=== PATIENT | female | born 2000 | race Caucasian/White ===

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

== ENCOUNTER 2023-05-02 17:15 | Outpatient (CLI) | payer OTHER, SELFPAY ==
[2023-05-02 17:33] VITALS: BP 123/68; PULSE 113
[2023-05-02 17:35] VITALS: PULSE 106; O2SAT 98
[2023-05-02 17:45] VITALS: TEMP 36.8
[2023-05-02 17:46] VITALS: PULSE 99; O2SAT 99
[2023-05-02 17:53] VITALS: BMI 37.4
[2023-05-02 18:22] LABS: ROM Internal Control Test YES-OK TO RESULT pt. (Internal QC); ROM Patient Test Negative (Negative); Record Kit Lot#, ROM+ K1374
--- NOTE | 2023-05-02 18:33 | OB.TRI.NOTE ---
HPI - General HPI Narrative EMPERATRIZ JOHNS, is a 23 F at 35.6 weeks gestation who presents with leaking fluid. Denies any contractions and reports positive movement. Maternal Data Information KAMILA Calculator Estimated Delivery Date Method Current WG Current Estimate 05/31/23 Manual 35w 6d PFSH PFSH Home Medications aspirin 81 mg tablet,delayed release (Jaspreet Low Dose Aspirin) 162 mg PO DAILY 05/02/23 [History Last Taken 04/30/23 22:00 162 mg] fluoxetine 20 mg capsule (Prozac) 20 mg PO DAILY 05/02/23 [History Last Taken 05/01/23 22:00 20 mg] fluticasone propionate 50 mcg/actuation nasal spray,suspension 2 spray intranasal DAILY PRN allergy symptoms 05/02/23 [History Last Taken 05/01/23 22:00 2 spray] vit no.95-ferrous fumarate 28 mg-folic acid 800 mcg tablet () 1 tab PO DAILY 05/02/23 [History Last Taken 05/01/23 22:00 1 TAB] Allergy/AdvReac Type Severity Reaction Status Date / Time amoxicillin [From Augmentin] Allergy Mild Rash Verified 05/02/23 17:49 clavulanic acid Allergy Mild Rash Verified 05/02/23 17:49 [From Augmentin] Seasonal Allergies: Uncoded Allergy Mild Other Verified 05/02/23 17:49 Social History Smoking Status: Never smoker ROS Eyes Eyes: Denies blurry vision Cardiovascular Cardiovascular: Reports none; Denies chest pain at rest, chest pain with activity or dizziness Respiratory/Chest Respiratory/Chest: Denies cough or dyspnea Gastrointestinal Gastrointestinal: Reports none and other; Denies diarrhea or vomiting Genitourinary Genitourinary: Denies dysuria Musculoskeletal Musculoskeletal: Reports none Integumentary Integumentary: Reports none; Denies rash Neurologic Neurologic: Denies dizziness, headache(s) or other visual disturbances Psychiatric Psychiatric: Reports none Physical Exam Const alert and no apparent distress General Appearance: cooperative Orientation / Consciousness: awake Exam Limitations: no limitations HEENT normocephalic Eyes General Eye: normal appearance of both eyes Neck full ROM Chest inspection of chest normal Resp normal respiratory effort and normal air movement Effort and Inspection: symmetric chest movement Auscultation: clear to auscultation bilaterally Cardio regular rate GI soft to palpation, non-tender and non-distended Inspection: and other Back/Spine normal ROM Extremity full ROM, normal capillary refill and no calf tenderness Skin no rashes or lesions noted Neuro oriented x3 and CN's II-XII intact bilaterally Psych mental status grossly normal NST FHR Rate Baby A Baseline: 145 Variability:: Moderate Accelerations:: 15 x 15 Decelerations:: None NST Reactive:: Yes FHR Category:: Category I Uterine Activity:: Irritability Assessment & Plan (1) 35 weeks gestation of : (2) No leakage of amniotic fluid into vagina: (3) History of prior with IUGR : (4) History of pre-eclampsia: PLAN: Plan NST reactive ROM plus negative PTL precautions reviewed D/C home with follow up in office
== END 2023-05-02 18:40 | disposition home or self-care (01) ==
LOC: WPOUT 17:30 → WP 17:31
PROVIDERS: PCP Nurse Practitioner Family; Referring Provider Advanced Practice Midwife; Visit Provider Advanced Practice Midwife
DX: Z03.79 Encounter for other suspected maternal and fetal conditions ruled out (principal); Z3A.35 35 weeks gestation of pregnancy; Z79.82 Long term (current) use of aspirin
CPT/HCPCS: 59025; 59050; 84112; 99221; G0378

== ENCOUNTER 2023-05-07 08:35 | Inpatient (IN) | payer OTHER, SELFPAY ==
[2023-05-07] VITALS (33 sets, daily range): BP systolic 107–145; BP diastolic 55–83; PULSE 79–111; RESP 16–17; TEMP 36.4–36.8; O2SAT 88–100; BMI 37.3
[2023-05-07] MEDS: LACTATED RINGERS 500 ML 999 ML IV (08:45)
[2023-05-07] MEDS: Oxytocin 10 UNITS/ML Vial IM (09:19)
[2023-05-07] MEDS: Oxytocin 15 Units/NS 250ml 15 UNITS/250 ML IV.SOLN 83 UNITS IV (09:19)
[2023-05-07 09:27] LABS: Absolute Neutrophil Count 11.2 X10^3/uL (2.0-7.7); Basophil# 0.08 X10^3/uL; Basophil% 0.5 % (0-1); Eosinophils% 0.7 % (0-5); Hemoglobin 12.9 g/dL (12.0-15.0); Lymphocyte % 15.8 % (19-41); Mean Corp Hgb Conc 33.1 g/dL (32-36); Mean Corpuscular Hgb 32.1 pg (27.0-32.0); Mean Platelet Vol. 10.1 fl (6.2-12.0); Monocyte# 1.14 X10^3/uL; Monocyte% 7.5 % (0-10); NRBC Flagged by Analyzer 0 % (0-5); Neutrophil # 11.18 X10^3/uL (2.7-7.7); Neutrophil % 73.8 % (47-70); Platelet Count 216 K/mm3 (150-450); RBC Distribution Width CV 12.8 % (11.6-14.6); RBC Distribution Width SD 44.8 fl (35.1-43.9); Red Blood Count 4.02 M/mm3 (4.2-5.4); White Blood Count 15.2 K/mm3 (4.4-11.0)
--- NOTE | 2023-05-07 09:29 | PCM.HP.OB ---
HPI - General General Date of Admission: 05/07/23 HPI Narrative EMPERATRIZ JOHNS, is a 23 F @ 36.4 weeks who presents c/o ctx - found to be 5cm on admission- quickly progressed to 9cm. Maternal Data Information KAMILA Calculator Estimated Delivery Date Method Current WG Current Estimate 05/31/23 Manual 36w 4d PFSH PFSH Home Medications aspirin 81 mg tablet,delayed release (Jaspreet Low Dose Aspirin) 162 mg PO DAILY 05/02/23 [History Last Taken 04/30/23 22:00 162 mg] fluoxetine 20 mg capsule (Prozac) 20 mg PO DAILY 05/02/23 [History Last Taken 05/01/23 22:00 20 mg] fluticasone propionate 50 mcg/actuation nasal spray,suspension 2 spray intranasal DAILY PRN allergy symptoms 05/02/23 [History Last Taken 05/01/23 22:00 2 spray] vit no.95-ferrous fumarate 28 mg-folic acid 800 mcg tablet () 1 tab PO DAILY 05/02/23 [History Last Taken 05/01/23 22:00 1 TAB] Allergy/AdvReac Type Severity Reaction Status Date / Time amoxicillin [From Augmentin] Allergy Mild Rash Verified 05/02/23 17:49 clavulanic acid Allergy Mild Rash Verified 05/02/23 17:49 [From Augmentin] Seasonal Allergies: Uncoded Allergy Mild Other Verified 05/02/23 17:49 Social History Smoking Status: Never smoker Vital Signs Vital Signs Vital Signs: 05/07/23 08:23 05/07/23 08:23 05/07/23 08:30 Pulse Rate 111 H 91 Blood Pressure 125/83 H BP Systolic 125 BP Diastolic 83 Pulse Ox 05/07/23 08:30 05/07/23 08:35 05/07/23 08:35 Pulse Rate 89 Blood Pressure BP Systolic BP Diastolic Pulse Ox 98 99 Physical Exam Const alert and oriented x3 General Appearance: cooperative HEENT normocephalic GI GI Narrative: Gravid, non tender to palpation. OB / External & Speculum: external exam normal Extremity normal to inspection Skin no rashes or lesions noted Neuro oriented x3 and CN's II-XII intact bilaterally Psych Appearance: grossly normal Labs Labs Labs: Blood Type Pending Antibody Screen Pending Hct 39.0 % (37-47) Hgb 12.9 g/dL (12.0-15.0) Syphilis Total Ab Pending Group B Strep DNA Pending Assessment & Plan (1) History of pre-eclampsia: (2) History of prior with IUGR : (3) 36 weeks gestation of : (4) labor in third trimester with delivery: PLAN: Plan Admit to L&D [facility] FHR/TOCO Monitor VS Anticipate rapid gbs was collected- pcn was ordered but patient progressed quickly- unable to start.
--- NOTE | 2023-05-07 09:31 | EX.PCM.OBRPT ---
Maternal Data Information KAMILA Calculator Estimated Delivery Date Method Current Current Estimate 05/31/23 Manual 36w 4d Vaginal Delivery Maternal Presentation Maternal Presentation: Active Labor Operative Information Date of Procedure: 05/07/23 Pre-Operative Diagnosis: labor, 36 weeks gestation Post-Operative Diagnosis: same, live male infant Surgery / Procedure Performed: Spontaneous Vaginal Delivery Type of Anesthesia: None Estimated Blood Loss: 100 Time of Delivery: 09:15 Findings Description of Procedure: Patient progressed to fully dilated with bulging membranes. Upon my arrival AROM performed clear fluid. At this time good maternal pushing efforts delivered the 's head followed by the rest the 's body. There was a body cord and a nuchal cord x 1 this was reduced after delivery as the infant delivered quickly. The infant was placed on the maternal chest the cord was clamped and cut after approximately 30 seconds of delayed clamping- was pink but not vigorous and the infant was taken to the warmer for evaluation with the entry level account executive called for assistance. IM and IV Pitocin were started per protocol. The placenta was delivered intact without complication. Vaginal and perineal tissue were evaluated no lacerations appreciated. Good hemostasis noted. Fundus was firm. Presentation: Vertex Amniotic Membrane Rupture Type: Artificial Amniotic Fluid Description: Clear Placental Delivery Description: Spontaneous Placenta Disposition: [facility] Specimen(s) Removed: Placenta Cord Vessel Description: 3 Vessels Cord Entanglement: - (Around the body and neck x1 tight) Nuchal Cord Compression: Without compression Infant A Gender: Male (1 minute): 7 (5 minute): 8 Delayed Cord Clamping: Yes Post Vaginal Delivery Medications Given After Delivery: IV Pitocin and IM Pitocin Episiotomy Description: None Laceration: None Complication Complications: None
[2023-05-07 09:50] LABS: Syphilis Antibodies Non-reactive
[2023-05-07 10:05] LABS: Group B Strep DNA By PCR POSITIVE (Negative); Probe Check PASS
[2023-05-07] MEDS: Ibuprofen 600 MG Tablet PO (11:49)
[2023-05-07] MEDS: FLUoxetine 20 MG Capsule PO (22:13)
[2023-05-08 03:10] VITALS: BP 129/66; PULSE 84; RESP 15; TEMP 36.5; O2SAT 98
[2023-05-08 08:04] VITALS: BP 114/65; PULSE 85; RESP 16; TEMP 36.2; O2SAT 97
--- NOTE | 2023-05-08 08:43 | PN.OBGYN_ITS ---
Subjective Subjective Denies complaints Objective Data Objective Data Vital Signs: Vital Signs Temp Pulse Resp BP Pulse Ox O2 Del Method 97.2 F L 85 16 114/65 97 Room Air 05/08/23 08:04 05/08/23 08:04 05/08/23 08:04 05/08/23 08:04 05/08/23 08:04 05/08/23 08:04 Oxygen Delivery Method Room Air Weight: 217 lb 12.8 oz Body Mass Index (BMI) 37.3 Intake & Output: Intake and Output for Last 24 Hours 05/06/23 05/07/23 05/08/23 23:59 23:59 23:59 Intake Total 750 / 750 Output Total 500 / 500 Balance 250 / 250 Lab / Micro Data 05/07/23 08:25 Labs: Laboratory Results - last 24 hr 05/07/23 08:25: WBC 15.2 H, RBC 4.02 L, Hgb 12.9, Hct 39.0, MCV 97.0, MCH 32.1 H , MCHC 33.1, RDW Std Deviation 44.8 H, RDW Coeff of Tylor 12.8, Plt Count 216, MPV 10.1, Immature Gran % (Auto) 1.700 H, Neut % (Auto) 73.8 H, Lymph % (Auto) 15.8 L, Meeker % (Auto) 7.5, Eos % (Auto) 0.7, Baso % (Auto) 0.5, Absolute Neuts (auto) 11.2 H, Absolute Lymphs (auto) 2.40, Nucleated RBC % 0, Syphilis Total Ab Non- reactive, Blood Type A POSITIVE, Antibody Screen POSITIVE, Antibody Identification ANTI-E, Crossmatch See Detail 05/07/23 08:30: Group B Strep DNA POSITIVE H, Specimen Comment Not Reportable 05/07/23 08:45: Antigen Identification E ANTIGEN - NEGATIVE Physical Exam Const alert, oriented x3 and no apparent distress HEENT normocephalic GI soft to palpation, non-tender and non-distended GI Narrative: fundus firm, mid & below umbilicus Extremity normal to inspection and no calf tenderness Assessment & Plan (1) (spontaneous vaginal delivery): COMMENT: PPD#1 (2) labor in third trimester with delivery: QUALIFIERS: Fetus number: single or unspecified fetus Qualified Code(s): O60.14X0 - labor third trimester with delivery third trimester, not applicable or unspecified PLAN: Plan Routine PP care
[2023-05-08 12:00] VITALS: BP 109/64; PULSE 93; RESP 16; TEMP 36.1; O2SAT 97
[2023-05-08] MEDS: Ibuprofen 600 MG Tablet PO ×2 (12:06→20:29)
--- NOTE | 2023-05-08 15:40 | CASEMGMT ---
Social Work Assessment Labor and Delivery Unit Patient Address:[address] [place] [address]. [place] [address] Phone number: [phone] Date of Referral: 05/07/23 Time of Referral:?[id number] Referred By: Isabel Rahman Date of Intervention: ??05/08/23 Time of Intervention:? 9311 Reason for Referral:? history of anxiety and depression, PHQ9 Sw completed chart review and acknowledges social work consult due to maternal history of anxiety and depression. Sw spoke to bedside RN who states that MOB also tripped the PHQ9. Sw agreed to complete [place] Depression Scale. Sw presented to bedside, introduced self to mother of baby (MOB- Yari) and father of baby (FOB- Neo). Sw explained sw role and completed psychosocial assessment. Sw asked FOB to step out of room momentarily so that MOB could complete [place] Depression Scale. FOB left the room respectfully and willingly. History obtained from: medical records, MOB and FOB Household composition: Parents report that currently residing in the home is AKILAH SHANE, their 2 year old son (Aman) and now baby. Parents deny any housing concerns and report that their housing is safe and secure. Patient's parent/guardian status:? ?Parents state that they have been together for 9 years, they started dating in middle school and have been together ever since. While meeting with MOB privately she denies any concerns with domestic violence or intimate partner violence. Medical History: ?SVITLANA is 23 year old female who is 2, para 1- now 2 following labor and delivery of . SVITLANA received routine [facility] with [facility] during . SVITLANA delivered baby via spontaneous vaginal delivery on 05/07/23 at 36 weeks gestation. Baby boy, named Cuate, was born weighing 5lb 1oz and his apgars were 7 and 8 at one and five minutes of life respectfully. MOB states that she is breast feeding and it is going well. SVITLANA reports that baby will be seen by Dr. Bell for pediatrics. Educational Status:? Both parents graduated from high school and attended some college, but did not obtain a degree. Financial Status: Both parents are gainfully employed outside of the home. 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 AKILAH states that he is only able to take a couple of days off of work now that baby has been born. 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 Supplies:??Parents have obtained all necessary baby supplies, including: car seat, safe sleep space, clothes, diapers and wipes. MOB states that she also has a breast pump. Childcare/Caregiver(s):? MOB will be the primary caregiver to baby while she is on maternity leave, along with FOB when he is not working. MOB states that when both parents have returned to work her grandma will be the padder cushion for and their two year old. Transportation:?? Parents have drivers license and reliable means of transportation. No transportation barriers at this time. Programs/Agencies Involved: ???SVITLANA states that she is not connected to any beneficial community resources at this time but is interested in [facility]. MOB receptive to sw making this referral for her when baby is medically ready for discharge. Sw also offered to assist MOB in getting future appointment scheduled with a mental health professional within the community due to MOB mental health history and high scores on PHQ9 and [place]. MOB stated she would think about this- but was receptive to receiving list of community resources. Children Services/Legal Issues:???No history of children services involvement. No issues or concerns warranting referral to be made at this time. Behavioral Health Issues: ??Mental Health History:??FOB states that when he was younger he was diagnosed and medicated for ADD. FOB states that this is something he feels as though he does not struggle with any more. MOB states that she has been diagnosed with anxiety and depression and is prescribed prozac from her primary care doctor. MOB states that when she was with her first son she believes that she experienced the baby blues. ? MOB completed [place] Depression Scale and her score was a 12. Sw provided education and supports. Sw encouraged MOB to get connected to a mental health professional to help support her during this period. MOB expressed understanding. Substance Use History:?SVITLANA denies substance use prior to and during . ? Family History:?MOB states that she does not have a family history of addiction or mental health diagnoses, FOB states the same. ? Drug Screens: No drug screens observed in chart review. ?? Family/Social Stressors:Parents deny any stressors or concerns at this time. Support Systems: MOB states that their biggest supports at this time are her parents and her grandparents. Depression/Shaken Baby/Safe Sleeping:? Sw provided education and literature for parents to review regarding depression, anxiety and baby blues. Sw provided MOB with a list of community resources and encouraged her to get connected to local counselor/ therapist to help her during this period. Sw also encouraged parents to talk about things that FOB can do for MOB to support her during this journey as well. MOB stated that she would be open to telling FOB when she is struggling with her mental health, but does not know if he would know how to support her during that time. Sw encouraged parents to talk openly about this over the next couple of weeks to months. Parents expressed understanding. Sw educated parents on shaken baby prevention and ABCs of safe sleep. Parents expressed understanding. ASSESSMENT:? MOB and FOB open to sw involvement and support. MOB and FOB engaged during assessment, MOB mostly answering questions and FOB agreeing with her answers. Parents were understanding of need to communicate regarding MOB mental health status during her journey. Parents have obtained all necessary baby supplies and have adequate supports in place. PLAN:? MOB and baby to be discharged when medically ready. Sw to make referral to [facility] as previously discussed with parents. ?No other services requested or indicated. Caryn Dyer, [employer] MAKER, TYPE CASTER
[2023-05-08 17:15] VITALS: BP 116/67; PULSE 81; RESP 16; TEMP 36.1
[2023-05-08 20:48] VITALS: BP 121/77; PULSE 73; RESP 20; TEMP 36.6; O2SAT 98
[2023-05-08] MEDS: FLUoxetine 20 MG Capsule PO (22:13)
[2023-05-09 02:41] VITALS: BP 108/66; PULSE 75; RESP 16; TEMP 36.7; O2SAT 97
[2023-05-09 08:12] VITALS: BP 126/76; PULSE 93; RESP 16; TEMP 36.3; O2SAT 98
--- NOTE | 2023-05-09 08:35 | PCM.PROGNOTE ---
Subjective Subjective patient seen at bedside, doing well. Patient reports good pain control. lochia mild. Objective Data Objective Data Vital Signs: Vital Signs Temp Pulse Resp BP Pulse Ox O2 Del Method 98.0 F 75 16 108/66 97 Room Air 05/09/23 02:41 05/09/23 02:41 05/09/23 02:41 05/09/23 02:41 05/09/23 02:41 05/09/23 02:41 Oxygen Delivery Method Room Air Weight: 98.792 kg Body Mass Index (BMI) 37.3 Intake & Output: Intake and Output for Last 24 Hours 05/07/23 05/08/23 05/09/23 23:59 23:59 23:59 Intake Total 750 / 750 Output Total 500 / 500 Balance 250 / 250 Lab / Micro Data 05/07/23 08:25 Physical Exam Const alert and oriented x3 General Appearance: cooperative HEENT normocephalic Neck General: normal visual inspection GI soft to palpation and non-distended GI Narrative: Fundus firm Extremity normal to inspection and no calf tenderness Skin no rashes or lesions noted Neuro oriented x3 and CN's II-XII intact bilaterally Psych mental status grossly normal Assessment & Plan Assessment/Plan (1) (spontaneous vaginal delivery): (2) labor in third trimester with delivery: QUALIFIERS: Fetus number: single or unspecified fetus Qualified Code(s): O60.14X0 - labor third trimester with delivery third trimester, not applicable or unspecified (3) 36 weeks gestation of : PLAN: Plan PPD# 2 , Doing well Routine care pain mgmt ambulation dc home
--- NOTE | 2023-05-09 08:36 | DCINST_ITS ---
Discharge Instructions Diet Discharge Diet: No restrictions Activity May resume sexual activity in: 6-8 weeks Dressing / Incision Call your doctor if you observe: Fever of 101 or Higher, Inability to urinate, Using more than 1 pad per hour and Uncontrolled pain Follow Up Care Please Follow Up With: Isabel Bernstein MD When: 1-2 weeks post and again at 6 weeks post . [phone] Test Results: Test results from this visit will be discussed in further detail at your follow- up appointment, if applicable. Discharge Plan Admission Admit Date/Time: 05/07/23 08:35 Attending Provider: Isabel Bernstein Primary Care Provider: Rocío Iverson NP Discharge Orders/Prescriptions Prescriptions: New acetaminophen 500 mg Tablet 1,000 mg PO Q6H PRN PRN (Reason: Pain 1-10 Or Fever) Qty: 0 0RF Continued fluoxetine [Prozac] 20 mg capsule 20 mg PO DAILY PNV cmb#95-ferrous fumarate-FA [] 28 mg iron- 800 mcg tablet 1 tab PO DAILY fluticasone propionate 50 mcg/actuation spray,suspension 2 spray intranasal DAILY PRN (Reason: allergy symptoms) Rx Instructions: administer into each nostril Discontinued aspirin [Jaspreet Low Dose Aspirin] 81 mg tablet,delayed release (DR/EC) 162 mg PO DAILY Referrals / Follow Up: Rocío Iverson NP, SOFTWARE DEVELOPMENT INTERN-C [Primary Care Provider] - Disposition Disposition (needs filled in before D/C Order can be placed): Home, Self Care
--- NOTE | 2023-05-09 08:38 | DS.PCM_ITS ---
Discharge Summary Date of Admission: 05/07/23 Date of Discharge: 05/09/23 Summary: Presented to [facility] labor and delivery on 05/07/2023 in active labor at 36+ weeks gestation. She progressed from 5 cm to fully dilated quickly. She delivered a live male infant without complication. She was discharged home on day #2 in stable condition. Meaningful Use Info Meaningful Use Diagnoses (Choose all that apply): None applicable Discharge Plan Admission Admit Date/Time: 05/07/23 08:35 Attending Provider: Isabel Bernstein Primary Care Provider: Rocío Iverson NP Discharge Orders/Prescriptions Prescriptions: New acetaminophen 500 mg Tablet 1,000 mg PO Q6H PRN PRN (Reason: Pain 1-10 Or Fever) Qty: 0 0RF Continued fluoxetine [Prozac] 20 mg capsule 20 mg PO DAILY PNV cmb#95-ferrous fumarate-FA [] 28 mg iron- 800 mcg tablet 1 tab PO DAILY fluticasone propionate 50 mcg/actuation spray,suspension 2 spray intranasal DAILY PRN (Reason: allergy symptoms) Rx Instructions: administer into each nostril Discontinued aspirin [Jaspreet Low Dose Aspirin] 81 mg tablet,delayed release (DR/EC) 162 mg PO DAILY Referrals / Follow Up: Rocío Iverson NP, CORRECTIONAL CASEWORK SPECIALIST-C [Primary Care Provider] - Disposition Disposition (needs filled in before D/C Order can be placed): Home, Self Care
== END 2023-05-09 11:05 | disposition home or self-care (01) | DRG 807 ==
LOC: WPOUT 08:36 → WP 08:36
PROVIDERS: Admitting Provider Obstetrics & Gynecology; PCP Nurse Practitioner Family; Referring Provider Obstetrics & Gynecology; Visit Provider Obstetrics & Gynecology
DX: O60.14X0 Preterm labor third trimester with preterm delivery third trimester, not applicable or unspecified (principal); Z37.0 Single live birth; O69.1XX0 Labor and delivery complicated by cord around neck, with compression, not applicable or unspecified; O69.82X0 Labor and delivery complicated by other cord entanglement, without compression, not applicable or unspecified; Z79.82 Long term (current) use of aspirin; Z3A.36 36 weeks gestation of pregnancy
CPT/HCPCS: 59025; 59050; 85025; 86780; 86850; 86870; 86900; 86901; 86902; 86905; 86920; 86922; 87653; 99221; J7120; G0378